=== PATIENT | female | born 1990 | race African-American/Black ===

== ENCOUNTER 2016-08-17 13:27 | Emergency (ER) | payer OTHER ==
[2016-08-17 13:30] VITALS: BMI 39.1
--- NOTE | 2016-08-17 14:42 | PDOC ---
History of Present Illness - General Chief Complaint: Vaginal Bleeding Stated Complaint: IUD MISPLACEMENT/ BLEEDING Time Seen by Provider: 08/17/16 14:20 History Source: Patient Exam Limitations: No Limitations - History of Present Illness Initial Comments: CHIEF COMPLAINT: 26 y/o afebrile female with no significant PMH c/o heavy vaginal bleeding and pelvic pain. HISTORY OF PRESENT ILLNESS: The patient had an IUD inserted [address] Rashid in the clinic. She states the next day she started having vaginal bleeding, which has gotten worse, and 3 days ago she began having pelvic pain. She states she is passing a lot of clots and is going through 7 pads/day. She denies f/c, dizziness, weakness, n/v/d, CP, SOB, back pain, hematuria, dysuria. She has a follow up appointment with Dr. Rashid tomorrow. Vital signs on arrival are within normal limits. REVIEW OF SYSTEMS: GENERAL/CONSTITUTIONAL: No fever/chills. No weakness. No weight change. HEAD, EYES, EARS, NOSE AND THROAT: No change in vision. No ear pain or discharge. No sore throat. CARDIOVASCULAR: No chest pain or shortness of breath. RESPIRATORY: No cough, wheezing, or hemoptysis. GASTROINTESTINAL: +pelvic pain. No vomiting, diarrhea, constipation. GENITOURINARY: No dysuria, frequency, or change in urination. +heavy vaginal bleeding. MUSCULOSKELETAL: No joint or muscle swelling or pain. No neck or back pain. SKIN: No rash or easy bruising. NEUROLOGIC: No headache, vertigo, loss of consciousness, or loss of sensation. PHYSICAL EXAM: GENERAL: The patient is awake, alert, and fully oriented, in no acute distress. She is a morbidly obese, ambulatory female, in NAD or obvious discomfort. HEAD: Normal with no signs of trauma. ENT: Pupils equal, round and reactive to light, extraocular movements intact, sclera anicteric, conjunctiva clear. Neck supple. LUNGS: Clear to auscultation bilaterally. Normal excursion. No respiratory distress or use of accessory muscles. CV: RRR, S1/S2, no MRG. Cap refill < 2 sec. ABDOMEN: Soft, non-distended, non-tender even to deep palpation, no hepatomegaly or splenomegaly, no masses. VAGINAL: Deferred EXTREMITIES: Normal range of motion, no edema. NEUROLOGICAL: Normal speech, normal gait. CN II-XII grossly intact. PSYCH: Normal mood, normal affect. SKIN: Warm, dry, normal turgor, no rashes or lesions noted. Past History - Past Medical History Allergies/Adverse Reactions: Allergies Allergy/AdvReac Type Severity Reaction Status Date / Time No Known Allergies Allergy Verified 08/17/16 13:30 Home Medications: Ambulatory Orders Oxycodone HCl/Acetaminophen [Percocet 5-325 mg Tablet] 1 tab PO Q6H #4 tablet MDD 4 08/17/16 Asthma: No Cancer: No Cardiac Disorders: No Diabetes: No HTN: No Seizures: No Thyroid Disease: No - Reproductive History (#): 1 - Immunization History Immunization Up to Date: Yes - Psycho/Social/Smoking Cessation Hx Anxiety: Yes Suicidal Ideation: No Smoking History: Never smoked Have you smoked in the past 12 months: No Number of Cigarettes Smoked Daily: 0 Cigars Per Day: 0 Hx Alcohol Use: No Drug/Substance Use Hx: No Substance Use Type: None Hx Substance Use Treatment: No *Physical Exam - Vital Signs Last Vital Signs Temp Pulse Resp BP Pulse Ox 97.9 F 75 20 151/79 98 08/17/16 13:28 08/17/16 13:28 08/17/16 13:28 08/17/16 13:28 08/17/16 13:28 ED Treatment Course - LABORATORY CBC & Chemistry Diagram: 08/17/16 14:44 08/17/16 14:44 Medical Decision Making - Medical Decision Making A/P: 26 y/o afebrile female with heavy vaginal bleeding and pelvic pain for the past 1 week s/p IUD insertion. Plan is as follows: 1. Labs 2. UA/culture 3. Transvaginal ultrasound Labs ok Transvaginal Ultrasound IMPRESSION: Intrauterine device is in place. 11mm thickness of the endometrial stripe with heterogeneous echotexture mainly in the lower uterine segment suggestive of blood clots in view of the clinical history of vaginal bleeding. Gave the patient her results. She has an appointment with Dr. Rashid tomorrow and I suggested she keep that appointment for possible IUD removal. Will discharge to home with an rx for a few percocet for pain until tomorrow. instructed her not to drive while taking percocet as it can cause drowsiness. Instructed her to return to the ER with any worsening or concerning symptoms. The patient verbalizes understanding of all instructions, has no further questions and is awaiting discharge. *DC/Admit/Observation/Transfer Diagnosis at time of Disposition: Abnormal vaginal bleeding - Discharge Dispostion Disposition: HOME Condition at time of disposition: Improved - Referrals Referrals: Tracy Flower MD [Primary Care Provider] - Denys Rashid MD [Staff Physician] - (Keep appointment scheduled for tomorrow) - Patient Instructions Printed Discharge Instructions: DI for Vaginal Bleeding Additional Instructions: Discharge Instructions: -Your IUD is in the correct position according to ultrasound -All of your blood work is normal -Take Percocet if needed for pain; may cause drowsiness -Please keep your scheduled appointment with Dr. Rashid for tomorrow for IUD removal. -Return to the ER with any worsening or concerning symptoms. - Post Discharge Activity Work/School Note: Back to Work
[2016-08-17] MEDS ORDERED: morphine CARPU-JECT 4 MG/1 ML DISP.SYRIN IVPUSH ONE (14:55)
[2016-08-17] MEDS ORDERED: morphine CARPU-JECT 4 MG/1 ML DISP.SYRIN ONE (15:19)
[2016-08-17 15:22] LABS: BASOPHIL 0.7 % (0-2.0); EOSINOPHIL 2.1 % (0-4.5); MCH 28.1 pg (25.7-33.7); MEAN CELL VOLUME 85.2 fl (80-96); MEAN PLT VOLUME 8.7 fl (7.5-11.1); NEUTROPHILS 49.5 % (42.8-82.8); PLATELET COUNT 325 K/MM3 (134-434); RDW 14.1 % (11.6-15.6); WHITE BLOOD COUNT 7.3 K/mm3 (4.0-10.0)
[2016-08-17 15:40] LABS: ALBUMIN 3.9 g/dl (3.4-5.0); ANION GAP 9 (8-16); BILIRUBIN,TOTAL 0.3 mg/dL (0.2-1.0); CALCIUM 8.6 mg/dL (8.5-10.1); CO2 26 mmol/L (21-32); CREATININE 0.8 mg/dL (0.55-1.02); GLUCOSE,RANDOM 79 mg/dL (74-106); SGOT/AST 10 U/L (15-37); SGPT/ALT 17 U/L (12-78)
[2016-08-17 15:41] LABS: ALK PHOS 78 U/L (45-117); TOT PROT 7.6 g/dl (6.4-8.2)
--- NOTE | 2016-08-17 15:42 | PDOC ---
[id number] 98 08/17/16 13:28 08/17/16 13:28 08/17/16 13:28 08/17/16 13:28 08/17/16 13:28 - Physical Exam Comments: 08/17/16 15:40 The patient was examined by [LIVIA Vaz] under my direct supervision. I personally evaluated the patient. I concur with the above findings and the plan of care. ED Treatment Course - LABORATORY CBC & Chemistry Diagram: 08/17/16 14:44 08/17/16 14:44 - ADDITIONAL ORDERS Additional order review: Laboratory Results 08/17/16 14:44 Urine HCG, Qual Negative 08/17/16 14:44 RBC 4.48 D MCV 85.2 MCHC 33.0 RDW 14.1 MPV 8.7 D Neutrophils % 49.5 Lymphocytes % 40.8 H D Monocytes % 6.9 Eosinophils % 2.1 Basophils % 0.7 - Medications Given in the ED: ED Medications Discontinued Medications Generic Name Dose Route Start Last Admin Trade Name Tirso PRN Reason Stop Dose Admin Morphine Sulfate 4 mg 08/17/16 14:55 08/17/16 15:27 Morphine Injection - IVPUSH 08/17/16 14:56 4 mg ONCE ONE Administration *DC/Admit/Observation/Transfer Diagnosis at time of Disposition: Abnormal vaginal bleeding - Discharge Dispostion Disposition: HOME Condition at time of disposition: Improved - Prescriptions Prescriptions: Oxycodone HCl/Acetaminophen [Percocet 5-325 mg Tablet] 1 tab PO Q6H #4 tablet MDD 4 - Referrals Referrals: Denys Rashid MD [Staff Physician] - (Keep appointment scheduled for tomorrow) Tracy Flower MD [Primary Care Provider] - - Patient Instructions Printed Discharge Instructions: DI for Vaginal Bleeding Additional Instructions: Discharge Instructions: -Your IUD is in the correct position according to ultrasound -All of your blood work is normal -Take Percocet if needed for pain; may cause drowsiness -Please keep your scheduled appointment with Dr. Rashid for tomorrow for IUD removal. -Return to the ER with any worsening or concerning symptoms. - Post Discharge Activity Work/School Note: Back to Work
[2016-08-17 15:47] VITALS: PULSE 66; TEMP 98.6
[2016-08-17 15:54] LABS: URINE APPEARANCE CLEAR; URINE BILIRUBIN NEGATIVE (NEGATIVE); URINE COLOR LTYELLOW; URINE GLUCOSE (UA) NEGATIVE (NEGATIVE); URINE KETONE NEGATIVE (NEGATIVE); URINE NITRITE NEGATIVE (NEGATIVE); URINE UROBILINOGEN NEGATIVE E.U./dl (0.2-1.0)
[2016-08-17] MEDS ORDERED: SODIUM CHLORIDE 1,000 ML IV STA (16:02)
[2016-08-17 16:20] LABS: URINE BLOOD 3+ (NEGATIVE); URINE LEUK ESTERASE 1+ (NEGATIVE); URINE PROTEIN 1+ (NEGATIVE)
[2016-08-17 16:26] LABS: URINE MUCUS RARE; URINE RBC 523 /hpf (0-3); URINE WBC 7 /hpf (3-5)
[2016-08-17 18:07] VITALS: BP 122/74
== END 2016-08-17 18:07 | disposition home or self-care (01) ==
LOC: JER 13:27
DX: N93.8 Other specified abnormal uterine and vaginal bleeding (principal); Z30.431 Encounter for routine checking of intrauterine contraceptive device
CPT/HCPCS: 36415; 76830-TC; 80053; 81003; 81015; 84703; 85025; 87491; 87591; 99284-25

== ENCOUNTER 2016-10-04 18:55 | Emergency (ER) | payer OTHER ==
[2016-10-04 19:03] VITALS: BP 123/73; PULSE 82; TEMP 98.9; BMI 36.8
--- NOTE | 2016-10-04 19:54 | PDOC ---
History of Present Illness - General Chief Complaint: Pain Stated Complaint: SWOLLEN LT FOOT/ABSCESS BOIL Time Seen by Provider: 10/04/16 19:42 History Source: Patient Exam Limitations: No Limitations - History of Present Illness Initial Comments: 10/04/16 21:26 Chief complaint: Abscess and foot pain pt is a healthy 26-year-old female complaining of right foot pain several days, no injury. No fever. Patient also has an abscess to the right axilla. GENERAL/CONSTITUTIONAL: No fever, weakness. dizziness HEAD, EYES, EARS, NOSE AND THROAT: No change in vision. No ear pain or discharge. No sore throat. CARDIOVASCULAR: No chest pain RESPIRATORY: No shortness of breath or cough GASTROINTESTINAL: No pain, nausea, vomiting, diarrhea or constipation GENITOURINARY: No dysuria MUSCULOSKELETAL: No neck or back pain, + foot pain SKIN: No rash, + abscess NEUROLOGIC: No headache, vertigo, loss of consciousness, or loss of sensation. GENERAL: The patient is awake, alert, and fully oriented, in no acute distress. HEAD: Normal with no signs of trauma. EYES: Pupils equal, round and reactive to light, sclera anicteric, conjunctiva clear. ENT: pharynx: no erythema, no exudate, uvula midline NECK: supple CHEST: clear, nontender, rr. Right axilla with 3 cm x 2 cm raised tender fluctuant erythemic area, no gross surrounding cellulitis ABD: soft, nontender EXTREMITIES: Right foot with mild tenderness to the right arch, no signs of infection, neurovascular intact, rest of extremities normal range of motion, no edema. NEUROLOGICAL: Normal speech, normal gait. SKIN: Warm, Dry Past History - Past Medical History Allergies/Adverse Reactions: Allergies Allergy/AdvReac Type Severity Reaction Status Date / Time No Known Allergies Allergy Verified 10/04/16 19:03 Home Medications: Ambulatory Orders Cephalexin Monohydrate [Keflex -] 1,000 mg PO BID #28 capsule 10/04/16 Oxycodone HCl/Acetaminophen [Percocet 5-325 mg Tablet] 1 tab PO Q4H #12 tablet MDD 6 10/04/16 Sulfamethoxazole/Trimethoprim [Bactrim Ds -] 1 tab PO BID #14 tablet 10/04/16 Asthma: No Cancer: No Cardiac Disorders: No Diabetes: No HTN: No Seizures: No Thyroid Disease: No - Reproductive History (#): 1 Therapeutic (s) & number: No - Immunization History Immunization Up to Date: Yes - Psycho/Social/Smoking Cessation Hx Anxiety: Yes Suicidal Ideation: No Smoking History: Never smoked Have you smoked in the past 12 months: No Number of Cigarettes Smoked Daily: 0 Cigars Per Day: 0 Hx Alcohol Use: No Drug/Substance Use Hx: No Substance Use Type: None Hx Substance Use Treatment: No *Physical Exam - Vital Signs Last Vital Signs Temp Pulse Resp BP Pulse Ox 98.9 F 82 18 123/73 99 10/04/16 18:58 10/04/16 18:58 10/04/16 18:58 10/04/16 18:58 10/04/16 18:58 Procedures - Incision and Drainage I&D Site: Right: Axilla Betadine cleansed: Yes Anesthesia: 2% Lidocaine Blade Size: 11 Iodinated Packin/4 in Complications: none Dressing: Yes Medical Decision Making - Medical Decision Making 10/04/16 21:30 Right foot pain, x-ray is negative, probable tendinitis, patient told wears shoes with good arch support Axilla abscess incised and drained, packed, patient will be placed on antibiotics given the size of it, Bactrim and Keflex *DC/Admit/Observation/Transfer Diagnosis at time of Disposition: Abscess Foot arch pain Qualifiers: Laterality: right Qualified Code(s): M79.671 - Pain in right foot - Discharge Dispostion Disposition: HOME Condition at time of disposition: Stable Admit: No - Prescriptions Prescriptions: Sulfamethoxazole/Trimethoprim [Bactrim Ds -] 1 tab PO BID #14 tablet Cephalexin Monohydrate [Keflex -] 1,000 mg PO BID #28 capsule Oxycodone HCl/Acetaminophen [Percocet 5-325 mg Tablet] 1 tab PO Q4H #12 tablet MDD 6 - Referrals Referrals: Tracy Flower MD [Primary Care Provider] - Yossi Valerio MD [Staff Physician] - - Patient Instructions Printed Discharge Instructions: Boil Additional Instructions: Take the Bactrim and the Keflex twice a day for 7 days You should take acidophilus to help prevent yeast infection or stomach upset Take Motrin 600 mg every 6 hours for pain and if still in pain you can also take Percocet every 4-6 hours for the next 2 days He is to have reevaluated him packing removed, return sooner if fever or feeling sicker Elevate the foot, get good shoes or good running shoes for arch support, if you don't want to get orthotics you can go to a good running store and have them fit your feet Any other problems with your foot, you can follow-up with an orthopedist, one was listed for you
[2016-10-04] MEDS ORDERED: LIDOCAINE HCL 2% (50ML VIAL) SQ ONE (20:38)
[2016-10-04] MEDS ORDERED: LIDOCAINE HCL 2% (20ML MULTI-DOSE VIAL) NR ONE (20:46)
[2016-10-04] MEDS ORDERED: IBUPROFEN 600 MG TABLET (FP) PO ONE ×2 (21:20→21:25)
[2016-10-04] MEDS ORDERED: SULFAMETHOXAZOLE/TRIMETHOPRIM 800MG/160MG D.S. TABLET PO ONE (21:20)
[2016-10-04] MEDS ORDERED: CEPHALEXIN MONOHYDRATE 500 MG CAPSULE (UD) PO ONE (21:20)
[2016-10-04] MEDS ORDERED: SULFAMETHOXAZOLE/TRIMETHOPRIM 800MG/160MG D.S. TABLET ONE (21:25)
[2016-10-04] MEDS ORDERED: CEPHALEXIN MONOHYDRATE 500 MG CAPSULE (UD) ONE (21:26)
== END 2016-10-04 21:49 | disposition home or self-care (01) ==
LOC: JERFT 18:55
PROC: 0X943ZZ Drainage of Right Axilla, Percutaneous Approach (ICD-10-PCS; principal; 2016-10-04)
DX: L02.411 Cutaneous abscess of right axilla (principal); M79.671 Pain in right foot
CPT/HCPCS: 73630-TC-RT; 84703; 99281-25

== ENCOUNTER 2016-10-06 08:17 | Emergency (ER) | payer SELFPAY ==
[2016-10-06 08:28] VITALS: BP 118/69; PULSE 68; TEMP 98.4; BMI 37.5
--- NOTE | 2016-10-06 09:16 | PDOC ---
Suture Removal/Wound Check HPI - History of Present Illness Chief Complaint: Revisit,Wound Recheck Stated Complaint: DRESSING REMOVAL Time Seen by Provider: 10/06/16 08:44 History Source: Yes: Patient Exam Limitations: Yes: No Limitations Treated at: [facility] ED - Previous ED Treatment Type of procedure performed on last visit: Yes: I&D of Abscess Tetanus Immunization: Yes: Up to Date - Onset of Previous Treatment Comment:: 10/06/16 13:56 Patient came to emergency department for evaluation and removal of packing to right axillary abscess. States procedure for incision and drainage was performed 2 days ago, and has continued pain and has been draining since incident. Patient denies fever, has been taking antibiotics as prescribed. Past History - Travel Traveled outside of the country in the last 30 days: No Close contact w/someone who was outside of country & ill: No - Past Medical History Allergies/Adverse Reactions: Allergies No Known Allergies Allergy (Verified 10/06/16 08:23) Home Medications: Ambulatory Orders NK [No Known Home Medication] 10/06/16 General: Yes: no pertinent history Surgical History: Yes: No Surgical History - Immunization History Immunizations Up to Date: Yes - Social History Smoking Status: Never smoked Number of Ciarettes Per Day: 0 Cigars Per Day: 0 Suture Removal/Wound Check PE - Physical Exam Laceration/Wound Check Symptoms: reports: Pain, Discharge Location of Laceration/Wound: right: Arm (AXILLA-PURULENT drainage from packing ) *Review of Systems - Review of Systems Able to Perform ROS?: Yes Constitutional: Yes: Symptoms Reported, See HPI. No: Fever HEENTM: No: Symptoms Reported : No: Symptoms Reported Musculoskeletal: Yes: Symptoms Reported, See HPI Integumentary: Yes: Symptoms Reported, See HPI, Erythema All Other Systems: Reviewed and Negative Medical Decision Making - Medical Decision Making 10/06/16 09:15 10/06/16 13:57 *DC/Admit/Observation/Transfer Diagnosis at time of Disposition: Abscess of arm, right - Discharge Dispostion Disposition: HOME Condition at time of disposition: Stable Admit: No - Referrals Referrals: Tracy Flower MD [Primary Care Provider] - - Patient Instructions Additional Instructions: Rest, keep area elevated. Avoid strenuous activity or exercise until wound is healed Use hot soaks to area to bring more blood to the surface and encourage drainage May change dressings as needed to keep clean - trying to avoid removal of packing for 2 days. If packing needs to be changed, return to emergency department or with your followup physician for wound care and evaluation and repacking as needed If packing needs to be removed, then in 2 days, while in the shower remove dressing and quickly pull the packing taken out. Allow water from shower to wash area thoroughly for 2-3 minutes, and pat dry upon exit of shower and replace dressing. Change his dressing daily until the wound is completely healed. May use Tylenol or Motrin for mild pain relief Use stronger medications as directed and prescribed Continue all medications as prescribed Followup with private physician in 2-3 days for wound check Return to emergency Department for worsening swelling, pain, redness, fevers as needed - Post Discharge Activity Work/School Note: Back to Work
== END 2016-10-06 09:53 | disposition home or self-care (01) ==
LOC: JER 08:17 → JERFT 08:17
DX: L02.411 Cutaneous abscess of right axilla (principal)
CPT/HCPCS: 87070; 87186; 87205; 99281-25

== ENCOUNTER → 2017-08-21 | Day surgery (SDC) | payer OTHER ==
[~2017-08-21] MED LIST: ACETAMINOPHEN INJECTION 100 ML IVPB ONE; DEXAMETHASONE SOD PHOSPHATE 4 MG/1 ML VIAL ONE; HEPARIN NA (PORCINE) 5,000 UNITS/ML 1ML VIAL ONE; LIDOCAINE HCL/PF 2% SDV 5ML VIAL ONE; MIDAZOLAM HCL 2 MG/2 ML SINGLE DOSE VIAL ONE; ONDANSETRON 4 MG/2 ML VIAL ONE; PROPOFOL 20 ML ONE; ROCURONIUM BROMIDE 50 MG/5 ML VIAL ONE; SUCCINYLCHOLINE CHLORIDE 200 MG/10 ML VIAL ONE; ePHEDrine SULFATE 50 MG/1 ML AMPULE ONE; fentaNYL CITRATE 250 MCG/5 ML VIAL ONE
[2017-08-21 07:16] VITALS: BP 119/75; PULSE 73; TEMP 98.8; BMI 39.9
--- NOTE | 2017-08-21 08:03 | PN ---
Progress Note (short form) - Note Progress Note: Patient found to have positive Beta HCG. She is informed that the surgery cannot be done today. She must report immediately to her OBGYN for counseling. She is to be given food immediately and follow up with Dr. Woody in two weeks.
== END | disposition home or self-care (01) ==
LOC: FASU 06:12
PROVIDERS: ATTEND Plastic Surgery
PROC: 0H0V0ZZ Alteration of Bilateral Breast, Open Approach (ICD-10-PCS; principal; 2017-08-21)
DX: Z53.09 Procedure and treatment not carried out because of other contraindication (principal); Z32.01 Encounter for pregnancy test, result positive
CPT/HCPCS: 84703; 87070; J1644

== ENCOUNTER 2017-08-23 09:30 | Emergency (ER) | payer OTHER ==
[2017-08-23 09:44] VITALS: BP 129/77; PULSE 79; TEMP 98.5; BMI 43.8
--- NOTE | 2017-08-23 10:32 | PDOC ---
History of Present Illness - General Chief Complaint: [facility] Stated Complaint: EVALUATION Time Seen by Provider: 08/23/17 10:02 History Source: Patient, Old Records Exam Limitations: No Limitations - History of Present Illness Travel History: No Initial Comments: 08/23/17 10:32 This is a 27-year-old 3 para 1 female who presents to the emergency department for evaluation of . Patient was scheduled for breast reduction done on 08/21 and had the procedure canceled due to positive urine testing. Patient states she has irregular menses which occur approximately 3 times a year and noted some vaginal spotting 07/09/2017. Patient is been having minor lower abdominal pain 08/05 and denies any vaginal bleeding or discharge. PMD: [employer] Boarding Specialist: "Megan" Past History - Past Medical History Allergies/Adverse Reactions: Allergies Allergy/AdvReac Type Severity Reaction Status Date / Time No Known Allergies Allergy Verified 08/23/17 09:40 Home Medications: Ambulatory Orders NK [No Known Home Medication] 10/06/16 Anemia: No Asthma: No Cancer: No Cardiac Disorders: No CVA: No COPD: No CHF: No Dementia: No Diabetes: No GI Disorders: No Disorders: No HTN: No Hypercholesterolemia: No Liver Disease: No Seizures: No Thyroid Disease: No Other medical history: DENIES. - Surgical History Abdominal Surgery: No Appendectomy: No Cardiac Surgery: No Cholecystectomy: No Lung Surgery: No Neurologic Surgery: No Orthopedic Surgery: No - Reproductive History (#): 1 Therapeutic (s) & number: No - Immunization History Immunization Up to Date: Yes - Suicide/Smoking/Psychosocial Hx Smoking History: Never smoked Have you smoked in the past 12 months: No Number of Cigarettes Smoked Daily: 0 Cigars Per Day: 0 Hx Alcohol Use: No Drug/Substance Use Hx: No Substance Use Type: None Hx Substance Use Treatment: No Review of Systems - Review of Systems Able to Perform ROS?: Yes Is the patient limited [place]tarian proficient: No Constitutional: No: Symptoms Reported HEENTM: No: Symptoms Reported Respiratory: No: Symptoms reported Cardiac (ROS): No: Symptoms Reported ABD/GI: Yes: See HPI : No: Symptoms Reported Musculoskeletal: No: Symptoms Reported Integumentary: No: Symptoms Reported Neurological: No: Symptoms reported *Physical Exam - Vital Signs Last Vital Signs Temp Pulse Resp BP Pulse Ox 98.5 F 79 19 129/77 100 08/23/17 09:41 08/23/17 09:41 08/23/17 09:41 08/23/17 09:41 08/23/17 09:41 - Physical Exam General Appearance: Yes: Appropriately Dressed. No: Apparent Distress Respiratory/Chest: positive: Lungs Clear, Normal Breath Sounds. negative: Respiratory Distress, Accessory Muscle Use Cardiovascular: positive: Regular Rhythm, Regular Rate. negative: Murmur Female Pelvic Exam: positive: normal external exam, cervical os closed, normal adnexa, discharge (thin white). negative: CMT Gastrointestinal/Abdominal: positive: Normal Bowel Sounds, Soft. negative: Tender Musculoskeletal: positive: Normal Inspection Medical Decision Making - Medical Decision Making 08/23/17 11:35 A/P: 27-year-old female who is with an LP of 07/09/17 presents with positive urine testing preop. Patient came today for evaluation of . RETARDER OPERATOR exam reveals normal external structures. Thin white discharge noted in vaginal vault. No blood present. No adnexal tenderness Or masses present. Beta hCG 3955. Patient was asymptomatic BV. Given patient has bacterial vaginosis and is currently asymptomatic I will not treat. Patient follow-up with her RETARDER OPERATOR as previously scheduled. *DC/Admit/Observation/Transfer Diagnosis at time of Disposition: BV (bacterial vaginosis) Qualifiers: Weeks of gestation: unspecified Qualified Code(s): Z34.90 - Encounter for supervision of normal , unspecified, unspecified trimester - Discharge Dispostion Disposition: HOME Condition at time of disposition: Stable Admit: No - Referrals Referrals: Tracy Flower MD [Primary Care Provider] - - Patient Instructions Additional Instructions: Eat yogurt with "live cultures" written on the side of the package. Keep well-hydrated. Only take Tylenol for pain or fevers. Do not take Motrin, Aleve, Advil or aspirin. Follow-up with your RETARDER OPERATOR as instructed. Your beta hCG level is 3955. Return to emergency department for any bleeding, worsening pain, vaginal discharge, or any other concerns. Thank you very much for choosing us to provide your emergent healthcare needs. - Post Discharge Activity
== END 2017-08-23 11:45 | disposition home or self-care (01) ==
LOC: JERFT 09:30
DX: O26.899 Other specified pregnancy related conditions, unspecified trimester (principal); Z34.90 Encounter for supervision of normal pregnancy, unspecified, unspecified trimester; Z3A.00 Weeks of gestation of pregnancy not specified
CPT/HCPCS: 36415; 84702; 99281-25

== ENCOUNTER 2018-04-25 12:15 | Inpatient (IN) | payer OTHER ==
[2018-04-25] MEDS ORDERED: CITRIC ACID/SODIUM CITRATE 30 ML UNIT-DOSE CUP PO ONE (12:58)
[2018-04-25] MEDS ORDERED: ELECTROLYTE-148 SOLN 1,000 ML IV SCH (13:00)
[2018-04-25 13:26] VITALS: BMI 48.7
[2018-04-25] MEDS ORDERED: ACETAMINOPHEN 325 MG TABLET (FP) PO PRN (13:50)
[2018-04-25] MEDS ORDERED: morphine SULFATE/Preservative Free 0.5 MG/ML (1cc Syringe) EP ONE (13:50)
[2018-04-25] MEDS ORDERED: ONDANSETRON 4 MG/2 ML VIAL IVPUSH PRN (13:50)
[2018-04-25] MEDS ORDERED: ceFAZolin 2 GRAM PREMIX BAG IVPB ONE (14:00)
[2018-04-25] MEDS ORDERED: ceFAZolin SODIUM 1 GM VIAL ONE (14:13)
[2018-04-25] MEDS ORDERED: morphine SULFATE/Preservative Free 0.5 MG/ML (1cc Syringe) ONE (14:13)
[2018-04-25] MEDS ORDERED: OXYTOCIN 10 UNITS/ML VIAL ONE (15:08)
[2018-04-25] MEDS ORDERED: OXYTOCIN 20 UNITS in 0.9% NS 20 UNIT/1,000 ML INFUS.BAG IV ONE (15:23)
--- NOTE | 2018-04-25 15:36 | OP ---
Operative Note - Note: Operative Date: 04/25/18 Pre-Operative Diagnosis: 39week , History of , desires elective repeat Operation: Repeat Low Transverse Section Findings: VFI, DEEPAK, No nuchal or meconium. Apgars 8/9. Weight pending. Normal tubes and ovaries bilaterally Post-Operative Diagnosis: Same as Pre-op Surgeon: Divine Galindo Oven Heater: Yobany Silva Anesthesia: Spinal Estimated Blood Loss (mls): 500 Drains, Volume Out (mls): 100 (clear urine) Operative Report Dictated: Yes
--- NOTE | 2018-04-25 15:45 | SURG ---
Surgery Garage Helper Note Garage Helper: Yobany Silva PA-C Date of Service: 04/25/18 Diagnosis: 39week , History of , desires elective repeat Procedure: Repeat Low Transverse Section I was present for the entirety of the operative procedure. For further detail, please refer to operative report. Visit type - Case Type Case Type: Scheduled - New patient This patient is new to me today: Yes Date on this admission: 04/25/18
[2018-04-25] MEDS ORDERED: MIDAZOLAM HCL 2 MG/2 ML SINGLE DOSE VIAL ONE (15:46)
--- NOTE | 2018-04-25 16:19 | OP ---
DATE OF OPERATION: 04/25/2018 PREOPERATIVE DIAGNOSES: A 39-week , history of delivery, desires elective repeat. POSTOPERATIVE DIAGNOSES: A 39-week , history of delivery, desires elective repeat. SURGEON: Divine Galindo MD PESTICIDE CHEMIST: LIVIA Ellis ANESTHESIA: Spinal. PROCEDURE: Repeat low-transverse section. IV FLUIDS: Per Anesthesia report. ESTIMATED BLOOD LOSS: 500 mL. URINE OUTPUT: 100 mL of clear urine at the end of the procedure. FINDINGS: Viable female , DEEPAK position. No nuchal, no meconium. Apgars 8 and 9. Weight pending. Normal tubes and ovaries bilaterally. COMPLICATIONS: None. CONDITION: Stable to recovery room. NATURE OF PROCEDURE: Patient was taken to the operating room after signing appropriate consent. Spinal anesthesia was administered. She was laid in supine with a left lateral tilt. Anesthesia was confirmed. Chong catheter was placed in the preoperative area. Abdomen was prepped and draped in the normal sterile fashion. A Pfannenstiel incision was made through her previous incision with the scalpel and carried to the underlying layers. The fascia was nicked in the midline and extended bilaterally with the Gonzalez scissors. Using Lizzeth clamps, the inferior fascia was grasped, tented upwards, and the rectus muscles were dissected off bluntly and with the Gonzalez scissors. Attention was then paid to the superior aspect, which was taken down in a similar fashion. The muscles were in the midline using a scalpel. The peritoneum was then entered bluntly. Bladder flap was created with the Metzenbaum scissors and digitally bladder blade was inserted. An incision with the scalpel was done in the low transverse segment. Clear amniotic fluid was noted. The head was delivered through the incision without difficulty, as was the remaining body. The cord was clamped and cut. was handed off to the pediatric staff. The placenta was delivered manually. The uterus was cleared of clot and debris. The uterus was closed in a single layer with a 0 Vicryl in an imbricating fashion. The uterus was noted to be hemostatic. Both adnexa were visualized and appeared normal. Attention was then paid again to the hysterotomy, which appeared hemostatic. Bladder blade was removed. The muscles were reapproximated with a 2-0 chromic. The fascia was reapproximated with a 0 Vicryl. The subcutaneous layer was reapproximated with a 2-0 Vicryl. The skin was closed with a 4-0 Monocryl. Bandages and dressings were placed. The patient tolerated the procedure well, was taken to the recovery room in stable condition. All sponge , lap and needle counts were correct.She did receive 2 g of Ancef at the start of the procedure. MD RAYO HERRERA/[id number] MTDD
[2018-04-25] MEDS ORDERED: METHYLERGONOVINE MALEATE 0.2 MG/1 ML AMP IM PRN (18:03)
[2018-04-25] MEDS ORDERED: IBUPROFEN 800 MG/8 ML IJ IVPB PRN (18:03)
[2018-04-25] MEDS ORDERED: OXYTOCIN 20 UNITS in 0.9% NS 20 UNIT/1,000 ML INFUS.BAG IV SCH (18:15)
[2018-04-25] MEDS ORDERED: FLU VACCINE QUAD 60 MCG/0.5 ML (MDV 18-19) IM ONE (18:17)
[2018-04-26] MEDS: IBUPROFEN 600 MG TABLET (FP) PO PRN ×3 (07:55→20:19)
[2018-04-26] MEDS: oxyCODONE HCL 5 MG TABLET PO PRN (07:56)
[2018-04-26] MEDS: SIMETHICONE 80 MG TAB.CHEW (FP) PO PRN (07:57)
[2018-04-26 08:12] LABS: BASO % 0.4 % (0-2.0); EOS % 1.1 % (0-4.5); HEMATOCRIT 33.8 % (32.4-45.2); HEMOGLOBIN 11.1 GM/dL (10.7-15.3); LYMPH % 22.2 % (8-40); MCH 27.7 pg (25.7-33.7); MCHC 32.8 g/dl (32.0-36.0); MEAN CELL VOLUME 84.5 fl (80-96); MEAN PLT VOLUME 7.3 fl (7.5-11.1); MONO % 10.4 % (3.8-10.2); NEUT % 65.9 % (42.8-82.8); PLATELET COUNT 260 K/MM3 (134-434); RDW 15.7 % (11.6-15.6); WHITE BLOOD COUNT 5.4 K/mm3 (4.0-10.0)
--- NOTE | 2018-04-26 10:41 | PN ---
Post Progress Note Type of Delivery: Repeat C/S Vital Signs: Vital Signs Temperature 98.0 F 04/26/18 08:28 Pulse Rate 88 04/26/18 08:28 Respiratory Rate 20 04/26/18 09:00 Blood Pressure 127/72 04/26/18 08:28 O2 Sat by Pulse Oximetry (%) 97 04/26/18 09:40 Uterus: Yes: Fundus @ umbilicus Incision: Yes: Dressing dry and intact Abdomen/GI: Yes: Abdomen soft Lochia: Yes: Rubra Lochia, amount: Small Extremities: Yes: Calves non-tender Activity: Ambulating - Labs Labs: CBC WBC 5.4 K/mm3 (4.0-10.0) 04/26/18 07:05 RBC 4.00 M/mm3 (3.60-5.2) 04/26/18 07:05 Hgb 11.1 GM/dL (10.7-15.3) 04/26/18 07:05 Hct 33.8 % (32.4-45.2) 04/26/18 07:05 MCV 84.5 fl (80-96) 04/26/18 07:05 MCH 27.7 pg (25.7-33.7) 04/26/18 07:05 MCHC 32.8 g/dl (32.0-36.0) 04/26/18 07:05 RDW 15.7 % (11.6-15.6) H D 04/26/18 07:05 Plt Count 260 K/MM3 (134-434) D 04/26/18 07:05 MPV 7.3 fl (7.5-11.1) L 04/26/18 07:05 Absolute Neuts (auto) 3.6 K/mm3 (1.5-8.0) 04/26/18 07:05 Neutrophils % 65.9 % (42.8-82.8) 04/26/18 07:05 Lymphocytes % 22.2 % (8-40) D 04/26/18 07:05 Monocytes % 10.4 % (3.8-10.2) H 04/26/18 07:05 Eosinophils % 1.1 % (0-4.5) 04/26/18 07:05 Basophils % 0.4 % (0-2.0) 04/26/18 07:05 Nucleated RBC % 0 % (0-0) 04/26/18 07:05 Assessment/Plan 28yo s/p RLTCS, POD#1 Routine PP care OOB, ambulate Labs reviewed, wnl Anticipate d/c to home by POD#4 Divine Galindo MD
[2018-04-26] MEDS: ACETAMINOPHEN 325 MG TABLET (FP) PO PRN ×2 (14:46→20:20)
--- NOTE | 2018-04-26 15:30 | PN ---
Progress Note (short form) - Note Progress Note: Anesthesia POD#1 S/P under Spinal anesthesia and DM VSS,no N/V,a lot of icthing calming down now. Legs are strong. Rut Ortega MD.
[2018-04-26] MEDS: SENNOSIDES/DOCUSATE COMBO (SENNA PLUS) TABLET (UD) PO PRN (20:18)
[2018-04-26] MEDS: diphenhydrAMINE HCL 25 MG CAPSULE (FP) PO PRN (21:35)
[2018-04-27] MEDS: SIMETHICONE 80 MG TAB.CHEW (FP) PO PRN ×4 (05:03→20:27)
[2018-04-27] MEDS: IBUPROFEN 600 MG TABLET (FP) PO PRN ×4 (05:04→20:28)
[2018-04-27] MEDS: oxyCODONE HCL 5 MG TABLET PO PRN (05:04)
--- NOTE | 2018-04-27 07:37 | PN ---
Progress Note (short form) - Note Progress Note: pod 2 , no excess vaginal bleeding, voids ok CBC, BMP 04/26/18 07:05 Last Vital Signs Temp Pulse Resp BP Pulse Ox 98.3 F 88 18 105/63 99 04/26/18 21:32 04/26/18 21:32 04/26/18 21:32 04/26/18 21:32 04/26/18 21:32 abdomen soft, no distension, no cva uterus firm incision dry, clean no calf tenderness plan ambulate advance diet cbc in am
[2018-04-27] MEDS: ACETAMINOPHEN 325 MG TABLET (FP) PO PRN ×3 (09:11→20:27)
--- NOTE | 2018-04-27 17:56 | PATH ---
Surgical Pathology Report Patient Name: DAPHNEY CH Med. Rec. 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 Electronically Signed Sara Maria M.D. Gross Description The specimen is received fresh labeled placenta and is a 799 gram, 21 x 18 x 2.2 cm. placenta with attached membranes and umbilical cord. The attached membranes are bello, translucent and insert marginally. The umbilical cord measures 50 cm. in length and averages 1.5 cm. in diameter. The cord inserts eccentrically, 5 cm. to the nearest margin. No true knots or strictures are identified. Cut surface of the umbilical cord reveals 3 vessels. The surface is wyman-blue with minimal fibrin deposition and appropriate caliber vessels. The maternal surface is red-brown with focal defects. Sectioning reveals red-brown, spongy parenchyma. No lesions are identified. Senior Investment Analyst sections are submitted in three cassettes as follows: 1- membrane rolls and umbilical cord; 2-3- full thickness sections of placenta. MLSZ/04/26/2018 sanml/04/26/2018
[2018-04-27] MEDS: diphenhydrAMINE HCL 25 MG CAPSULE (FP) PO PRN (21:09)
[2018-04-27] MEDS: SENNOSIDES/DOCUSATE COMBO (SENNA PLUS) TABLET (UD) PO PRN (21:09)
[2018-04-28] MEDS: SIMETHICONE 80 MG TAB.CHEW (FP) PO PRN ×4 (04:20→19:15)
[2018-04-28] MEDS: IBUPROFEN 600 MG TABLET (FP) PO PRN ×4 (04:20→19:15)
[2018-04-28] MEDS: oxyCODONE HCL 5 MG TABLET PO PRN ×3 (04:23→22:14)
[2018-04-28 08:15] LABS: BASO % 0.5 % (0-2.0); EOS % 3.3 % (0-4.5); HEMATOCRIT 31.3 % (32.4-45.2); HEMOGLOBIN 10.9 GM/dL (10.7-15.3); LYMPH % 36.5 % (8-40); MCH 29.7 pg (25.7-33.7); MEAN CELL VOLUME 84.7 fl (80-96); MEAN PLT VOLUME 7.8 fl (7.5-11.1); MONO % 9.6 % (3.8-10.2); NEUT % 50.1 % (42.8-82.8); PLATELET COUNT 304 K/MM3 (134-434); RBC 3.69 M/mm3 (3.60-5.2); RDW 15.6 % (11.6-15.6); WHITE BLOOD COUNT 4.4 K/mm3 (4.0-10.0)
[2018-04-28] MEDS: ACETAMINOPHEN 325 MG TABLET (FP) PO PRN ×3 (08:22→19:16)
--- NOTE | 2018-04-28 11:48 | PN ---
Post Progress Note Type of Delivery: Repeat C/S Vital Signs: Vital Signs Temperature 98 F 04/28/18 08:56 Pulse Rate 75 04/28/18 08:56 Respiratory Rate 20 04/28/18 08:56 Blood Pressure 115/66 04/28/18 08:56 O2 Sat by Pulse Oximetry (%) 99 04/26/18 21:32 Breast Exam: Yes: Soft Uterus: Yes: Fundus below umbilicus Abdomen/GI: Yes: Abdomen soft Lochia: Yes: Rubra Lochia, amount: Small Extremities: Yes: Calves non-tender - Labs Labs: CBC WBC 4.4 K/mm3 (4.0-10.0) 04/28/18 07:00 RBC 3.69 M/mm3 (3.60-5.2) 04/28/18 07:00 Hgb 10.9 GM/dL (10.7-15.3) 04/28/18 07:00 Hct 31.3 % (32.4-45.2) L 04/28/18 07:00 MCV 84.7 fl (80-96) 04/28/18 07:00 MCH 29.7 pg (25.7-33.7) 04/28/18 07:00 MCHC 35.0 g/dl (32.0-36.0) 04/28/18 07:00 RDW 15.6 % (11.6-15.6) 04/28/18 07:00 Plt Count 304 K/MM3 (134-434) 04/28/18 07:00 MPV 7.8 fl (7.5-11.1) 04/28/18 07:00 Absolute Neuts (auto) 2.2 K/mm3 (1.5-8.0) 04/28/18 07:00 Neutrophils % 50.1 % (42.8-82.8) D 04/28/18 07:00 Lymphocytes % 36.5 % (8-40) D 04/28/18 07:00 Monocytes % 9.6 % (3.8-10.2) 04/28/18 07:00 Eosinophils % 3.3 % (0-4.5) D 04/28/18 07:00 Basophils % 0.5 % (0-2.0) 04/28/18 07:00 Nucleated RBC % 0 % (0-0) 04/28/18 07:00 Assessment/Plan 28yo s/p RLTCS, POD#3 Routine PP care OOB, ambulate Labs reviewed, wnl Anticipate d/c to home by POD#4 Divine Galindo MD
[2018-04-29] MEDS: IBUPROFEN 600 MG TABLET (FP) PO PRN (05:20)
[2018-04-29] MEDS: SIMETHICONE 80 MG TAB.CHEW (FP) PO PRN (05:20)
[2018-04-29] MEDS: ACETAMINOPHEN 325 MG TABLET (FP) PO PRN (05:21)
[2018-04-29 09:07] VITALS: BP 122/74; PULSE 78; TEMP 99
== END 2018-04-29 10:40 | disposition home or self-care (01) | DRG 540 ==
LOC: JLDR 12:15 → J3W 17:20
PROVIDERS: ADMIT Obstetrics & Gynecology; ATTEND Obstetrics & Gynecology
PROC: 10D00Z1 Extraction of Products of Conception, Low, Open Approach (ICD-10-PCS; principal; 2018-04-25)
DX: O34.211 Maternal care for low transverse scar from previous cesarean delivery (principal); Z3A.39 39 weeks gestation of pregnancy; Z37.0 Single live birth
CPT/HCPCS: 36415; 85025; 86593; 88307-TC; 94010

== ENCOUNTER 2018-09-28 09:16 | Day surgery (SDC) | payer OTHER ==
[2018-09-26 14:23] VITALS: BMI 36.3
--- NOTE | 2018-09-28 09:17 | HP ---
History & Physical Update - History History: No Change - Physical Physical: No Change - Assessment Assessment: No Change - Plan Plan: No Change
[2018-09-28] MEDS ORDERED: BUPIVACAINE HCL/PF 0.5% (5MG/ML) 10 ML VIAL ONE ×2 (10:41→11:19)
[2018-09-28] MEDS ORDERED: MIDAZOLAM HCL 2 MG/2 ML SINGLE DOSE VIAL ONE ×3 (11:21)
[2018-09-28] MEDS ORDERED: ROCURONIUM BROMIDE 50 MG/5 ML VIAL ONE (11:21)
[2018-09-28] MEDS ORDERED: fentaNYL CITRATE 250 MCG/5 ML VIAL ONE (11:21)
--- NOTE | 2018-09-28 11:40 | HP ---
Admitting History and Physical - Admission Chief Complaint: ventral hernia History of Present Illness: 28 y.o. female with supraumbilical bulge noted during and persisted post- associated with pain on exertion History Source: Patient Limitations to Obtaining History: No Limitations - Past Medical History ...LMP: 09/13/18 Heme/Onc: Yes: Anemia - Smoking History Smoking history: Never smoked Have you smoked in the past 12 months: No Aproximately how many cigarettes per day: 0 - Alcohol/Substance Use Hx Alcohol Use: No History of Substance Use: reports: None Home Medications - Allergies Allergies/Adverse Reactions: Allergies Allergy/AdvReac Type Severity Reaction Status Date / Time No Known Allergies Allergy Verified 09/28/18 09:43 - Home Medications Home Medications: Ambulatory Orders Vit/Iron Fum/Folic AC [ Tablet] 1 each PO DAILY 12/04/17 Review of Systems - Review of Systems Constitutional: reports: No Symptoms Eyes: reports: No Symptoms Neck: reports: No Symptoms Cardiovascular: reports: No Symptoms Respiratory: reports: No Symptoms Gastrointestinal: reports: Abdominal Pain Physical Examination Vital Signs: Vital Signs Temperature 98.2 F 09/28/18 09:42 Pulse Rate 66 09/28/18 09:42 Respiratory Rate 18 09/28/18 09:42 Blood Pressure 114/68 09/28/18 09:42 O2 Sat by Pulse Oximetry (%) 98 09/28/18 09:42 Constitutional: Yes: Well Nourished Eyes: Yes: WNL HENT: Yes: Normocephalic Neck: Yes: Supple Cardiovascular: Yes: Regular Rate and Rhythm Respiratory: Yes: CTA Bilaterally Gastrointestinal: Yes: Abdomen, Obese, Hernia (5 cm non-reducible supraumbilical bulge with mild tenderness) Problem List - Problems (1) Ventral hernia with obstruction Assessment/Plan: Robotic ventral hernia repair with mesh Code(s): K43.6 - OTHER AND UNSP VENTRAL HERNIA WITH OBSTRUCTION, W/O GANGRENE
[2018-09-28] MEDS ORDERED: ceFAZolin SODIUM 1 GM VIAL IVPB ONE (12:03)
[2018-09-28] MEDS ORDERED: ONDANSETRON 4 MG/2 ML VIAL IVPUSH PRN (12:29)
[2018-09-28] MEDS ORDERED: oxyCODONE HCL 5 MG TABLET PO PRN (12:29)
[2018-09-28] MEDS ORDERED: MORPHINE SULFATE 2 MG/ML VIAL IVPUSH PRN (12:30)
[2018-09-28] MEDS ORDERED: ACETAMINOPHEN 325 MG TABLET (FP) PO SCH (12:30)
[2018-09-28] MEDS ORDERED: LACTATED RINGERS SOLUTION 1,000 ML IV SCH (12:30)
[2018-09-28] MEDS ORDERED: KETOROLAC TROMETHAMINE 15 MG/ML VIAL IVPUSH PRN (12:30)
[2018-09-28] MEDS ORDERED: BUPIVACAINE HCL/PF 0.5% (5MG/ML) 10 ML VIAL IJ ONE ×2 (14:05)
--- NOTE | 2018-09-28 14:58 | OP ---
Operative Note - Note: Operative Date: 09/28/18 Pre-Operative Diagnosis: Ventral Hernia Operation: Robotic assisted Laparoscopic Ventral Hernia Repair with Mesh Findings: as dictated Implants: as dictated Post-Operative Diagnosis: Same as Pre-op Surgeon: Beni Hope Sociology Faculty Member: Robert Hensley Anesthesiologist/AUTOMATION TENDER: Patricia Meehan Anesthesia: General, Local (26cc .5% Marcaine) Estimated Blood Loss (mls): 10 (ml) Fluid Volume Replaced (mls): 800 (ml LR) Operative Report Dictated: Yes
--- NOTE | 2018-09-28 15:00 | SURG ---
Surgery Fur Repair Inspector Note Fur Repair Inspector: Robert Hensley PA-C (Suzy) Date of Service: 09/28/18 Diagnosis: Ventral Hernia Procedure: Robotic assisted Laparoscopic Ventral Hernia Repair with Mesh I was present for the entirety of the operative procedure. For further detail, please refer to operative report. Visit type - Case Type Case Type: Scheduled - Emergency Emergency Visit: No - New patient This patient is new to me today: Yes Date on this admission: 09/28/18 - Critical Care Critical Care patient: No
[2018-09-28 16:31] VITALS: TEMP 98
[2018-09-28] MEDS ORDERED: ACETAMINOPHEN 325 MG TABLET (FP) ONE (17:41)
[2018-09-28 17:47] VITALS: BP 114/63; PULSE 65
--- NOTE | 2018-09-29 07:06 | OP ---
DATE OF OPERATION: 09/28/2018 PROCEDURE: Robotic-assisted laparoscopic ventral hernia repair with mesh. PREOPERATIVE DIAGNOSIS: Umbilical and epigastric hernia with obstruction. POSTOPERATIVE DIAGNOSIS: Umbilical and epigastric hernia with obstruction. SURGEON: Beni Hope MD BUILD AND RELEASE MANAGER: LIVIA Hensley ANESTHESIA: General endotracheal. REASON FOR PROCEDURE: This is a 28-year-old female who presents with a supraumbilical bulge during , which persisted associated with pain on exertion. On physical exam, the patient has a 5-cm nonreducible bulge of the supraumbilical area with mild tenderness on attempting to reduce the incarcerated hernia, so the patient was advised initially to lose weight. However, the pain intensity was increasing, prompting to do the hernia repair at an earlier time. Consent was obtained after discussing the risks, benefits, and alternatives of the procedure. PROCEDURE IN DETAIL: The patient was brought to the operating room and placed in supine position. General endotracheal anesthesia was administered. The left arm was tucked to the side. The abdomen was prepped and draped in the usual sterile fashion. Using 0.5% Marcaine, local anesthesia was administered to the proposed incision site. The peritoneal cavity was entered using the Veress needle technique via an 8-mm subcostal incision 15 cm from the hernia. Pneumoperitoneum was established. This was followed by insertion of the 8-mm port. The 3D laparoscope was inserted, and the peritoneal cavity was carefully inspected and was noted to be free of any inadvertent injury. Two hernias were noted, one at the epigastric region about 2 cm up above the umbilicus, which was about 5 cm in diameter, and an umbilical hernia, which was about 3 cm in diameter. Two 8-mm ports were inserted at the left flank 8 mm away from each other. Under direct vision, the target organ was set and the robotic arms were docked. A fenestrated bipolar grasper was inserted at the lower most port, and Endowrist Gemma connected to monopolar cautery was inserted at the left subcostal port. The camera was placed in between the 2 ports. The undersigned then scrubbed out and commenced the console part of the procedure. The peritoneum covering the area of the hernia was scored. Using the Endo Gemma on the left side and carried toward the hernia sac reducing the sac and the sac containing preperitoneal fat. After the hernia was completely reduced, the defects, which were near each other, were closed with continuous V-Lock No. 1 and absorbable suture. After the primary closure was done, the 10-cm x 15-cm Symbotex mesh was deployed with its antiadhesion barrier facing the peritoneal cavity. On insertion of one of the nonabsorbable sutures, the needle snapped, and it migrated somewhere in the peritoneal cavity. Due to the difficulty in looking for the needle, the current procedure was converted to straight laparoscopy. The subcostal port was changed to an 11-mm port, and a 10-mm 30-degree scope was inserted. The search for the needle was done and was noted to be found on the right pelvic gutter. This was then retrieved. The rest of the sutures were also retrieved. The mesh was then tacked to the posterior abdominal wall using the AbsorbaTack tacking device. After the deployment was deemed satisfactory, the peritoneal cavity was again carefully inspected and was noted to be free of active bleeding. The pneumoperitoneum was evacuated, and the ports were removed. The wounds were closed with subcuticular Biosyn 4-0 sutures reinforced with Dermabond. The patient was successfully extubated and transferred to the post anesthesia care unit in satisfactory condition. Estimated blood loss was about 10 mL. Wound class clean. The patient received a gram of Ancef prior to the start of the procedure. Liz [id number] MTDD
== END 2018-09-28 18:07 | disposition home or self-care (01) ==
LOC: JASU-SURG 09:16
PROVIDERS: ATTEND Surgery
PROC: 8E0W4CZ Robotic Assisted Procedure of Trunk Region, Percutaneous Endoscopic Approach (ICD-10-PCS; 2018-09-28)
PROC: 0WUF4JZ Supplement Abdominal Wall with Synthetic Substitute, Percutaneous Endoscopic Approach (ICD-10-PCS; principal; 2018-09-28 12:10)
DX: K42.0 Umbilical hernia with obstruction, without gangrene (principal); K43.6 Other and unspecified ventral hernia with obstruction, without gangrene
CPT/HCPCS: 49653; S2900; 84703; 94760

== ENCOUNTER 2018-10-22 08:50 | Emergency (ER) | payer OTHER ==
[2018-10-22 09:04] VITALS: BP 134/81; PULSE 88; TEMP 100.1; BMI 32.3
[2018-10-22] MEDS ORDERED: PENICILLIN G BENZATHINE 1,200,000 UNIT/2 ML PFS IM ONE (09:20)
--- NOTE | 2018-10-22 09:24 | PDOC ---
History of Present Illness - General Chief Complaint: Sore Throat Stated Complaint: STREP THROAT Time Seen by Provider: 10/22/18 09:12 History Source: Patient Exam Limitations: No Limitations - History of Present Illness Initial Comments: 10/22/18 09:22 Onset of pain, swelling, sore throat since last night. States felt well yesterday morning. 4-year-old was ill with strep throat last week Timing/Duration: unsure Severity: moderate Associated Symptoms: reports: fever/chills, headaches, malaise Past History - Travel Traveled outside of the country in the last 30 days: No Close contact w/someone who was outside of country & ill: No - Past Medical History Allergies/Adverse Reactions: Allergies Allergy/AdvReac Type Severity Reaction Status Date / Time No Known Allergies Allergy Verified 10/22/18 09:19 Home Medications: Ambulatory Orders NK [No Known Home Medication] 10/22/18 Anemia: No Asthma: No Cancer: No Cardiac Disorders: No CVA: No COPD: No CHF: No Dementia: No Diabetes: No GI Disorders: No Disorders: No HTN: No Hypercholesterolemia: No Liver Disease: No Seizures: No Thyroid Disease: No - Surgical History Abdominal Surgery: No Appendectomy: No Cardiac Surgery: No Cholecystectomy: No Lung Surgery: No Neurologic Surgery: No Orthopedic Surgery: No - Reproductive History (#): 1 Therapeutic (s) & number: No - Immunization History Immunization Up to Date: Yes - Suicide/Smoking/Psychosocial Hx Smoking History: Never smoked Have you smoked in the past 12 months: No Number of Cigarettes Smoked Daily: 0 Cigars Per Day: 0 Hx Alcohol Use: No Drug/Substance Use Hx: No Substance Use Type: None Hx Substance Use Treatment: No Review of Systems - Review of Systems Able to Perform ROS?: Yes Is the patient limited Turkmen proficient: Yes Constitutional: Yes: Symptoms Reported, See HPI. No: Fever HEENTM: Yes: Symptoms Reported, See HPI, Throat Pain, Throat Swelling Respiratory: Yes: See HPI. No: Symptoms reported, Cough ABD/GI: Yes: See HPI. No: Symptoms Reported, Nausea, Vomiting All Other Systems: Reviewed and Negative *Physical Exam - Vital Signs Last Vital Signs Temp Pulse Resp BP Pulse Ox 100.1 F H 88 16 134/81 100 10/22/18 09:03 10/22/18 09:03 10/22/18 09:03 10/22/18 09:03 10/22/18 09:03 - Physical Exam General Appearance: Yes: Nourished, Appropriately Dressed, Apparent Distress HEENT: positive: Normal ENT Inspection, TMs Normal, Tonsillar Exudate (tonsils enlarged however airway is patent. Has fetid breath, consistent with streptococcal infection), Tonsillar Erythema, Nasal Congestion, Rhinorrhea Neck: positive: Tender, Supple, Lymphadenopathy (R), Lymphadenopathy (L) Respiratory/Chest: positive: Lungs Clear, Normal Breath Sounds Integumentary: positive: Dry, Warm, Pale Neurologic: positive: drainage engineer II-XII NML intact, Fully Oriented, Alert, Normal Mood/ Affect, Normal Response Medical Decision Making - Medical Decision Making 10/22/18 14:25 Treated with Bicillin 1.2 million units IM due to all clinical evidence of streptococcal infection of pharynx. No reaction after 30 minutes, *DC/Admit/Observation/Transfer Diagnosis at time of Disposition: Pharyngitis Qualifiers: Pharyngitis/tonsillitis etiology: unspecified etiology Qualified Code(s): J02.9 - Acute pharyngitis, unspecified - Discharge Dispostion Disposition: HOME Condition at time of disposition: Stable Decision to Admit order: No - Referrals Referrals: Tracy Flower MD [Primary Care Provider] - - Patient Instructions Printed Discharge Instructions: DI for Pharyngitis/Tonsillopharyngitis -- Adult Additional Instructions: Rest, drink lots of fluids: Teas, water, soups Eat cold things: Ice cream, ice pops, ice chips Saltwater gargles Steamy showers/seem to face break up mucus Avoid contact with others until fevers and pain resolved Lots of handwashing and good hygiene, this is contagious You have been treated with Bicillin LA 1.2 million units injection which is a one-time treatment for strep pharyngitis. You will not need to take any further antibiotics. Tylenol or Motrin for fever and pain Followup with private physician in one to 2 days as needed if not improving Return to emergency department for worsened symptoms, fevers, dehydration - Post Discharge Activity Forms/Work/School Notes: Back to Work
[2018-10-22] MEDS ORDERED: PENICILLIN G BENZATHINE 2,400,000 UNIT/4 ML PFS ONE (09:27)
== END 2018-10-22 09:58 | disposition home or self-care (01) ==
LOC: JERFT 08:50
DX: J02.0 Streptococcal pharyngitis (principal); B95.5 Unspecified streptococcus as the cause of diseases classified elsewhere
CPT/HCPCS: 96372; 99281-25

== ENCOUNTER → 2019-08-22 | Day surgery (SDC) | payer OTHER ==
[2019-08-21 16:45] VITALS: BMI 40.3
[~2019-08-22] MED LIST changes: -ACETAMINOPHEN INJECTION 100 ML IVPB ONE; +ELECTROLYTE-148 SOLN 1,000 ML IV SCH; +EPHEDRINE SULFATE/0.9% NACL/PF 50 MG/10 ML SYRINGE NR ONE; -HEPARIN NA (PORCINE) 5,000 UNITS/ML 1ML VIAL ONE; +IBUPROFEN 600 MG TABLET (FP) PO PRN; +IBUPROFEN 800 MG/8 ML IJ IVPB PRN; +LACTATED RINGERS SOLUTION 1,000 ML IV SCH; +ONDANSETRON 4 MG/2 ML VIAL IVPUSH PRN; -ONDANSETRON 4 MG/2 ML VIAL ONE; -ROCURONIUM BROMIDE 50 MG/5 ML VIAL ONE; +SUCCINYLCHOLINE CHLORIDE 200 MG/10 ML SYRINGE ONE; -SUCCINYLCHOLINE CHLORIDE 200 MG/10 ML VIAL ONE; -ePHEDrine SULFATE 50 MG/1 ML AMPULE ONE; -fentaNYL CITRATE 250 MCG/5 ML VIAL ONE; +oxyCODONE HCL 5 MG TABLET PO PRN
[2019-08-22 12:33] LABS: BASO % 0.6 % (0-2.0); EOS % 3.2 % (0-4.5); HEMATOCRIT 38.3 % (32.4-45.2); HEMOGLOBIN 12.7 GM/dL (10.7-15.3); LYMPH % 48.7 % (8-40); MCH 28.2 pg (25.7-33.7); MCHC 33.2 g/dl (32.0-36.0); MEAN PLT VOLUME 8.2 fl (7.5-11.1); MONO % 8.4 % (3.8-10.2); NEUT % 39.1 % (42.8-82.8); PLATELET COUNT 330 K/MM3 (134-434)
[2019-08-22 12:50] LABS: INR 1.04 (0.83-1.09); PROTHROMBIN TIME (PATIENT) 12.3 SEC (9.7-13.0)
[2019-08-22 13:35] LABS: ALBUMIN 3.8 g/dl (3.4-5.0); ALK PHOS 77 U/L (45-117); ANION GAP 4 MMOL/L (8-16); BILIRUBIN,TOTAL 0.4 mg/dL (0.2-1); BLOOD UREA NITROGEN 12.6 mg/dL (7-18); CALCIUM 8.9 mg/dL (8.5-10.1); CHLORIDE 106 mmol/L (98-107); CO2 27 mmol/L (21-32); CREATININE 0.8 mg/dL (0.55-1.3); GLUCOSE,RANDOM 75 mg/dL (74-106); POTASSIUM 4.2 mmol/L (3.5-5.1); SGOT/AST 10 U/L (15-37); SGPT/ALT 22 U/L (13-61); SODIUM 138 mmol/L (136-145); TOT PROT 7.6 g/dl (6.4-8.2)
--- NOTE | 2019-08-22 14:06 | EKG ---
Test Reason : Blood Pressure : / mmHG Vent. Rate : 072 BPM Atrial Rate : 072 BPM P-R Int : 158 ms QRS Dur : 102 ms QT Int : 432 ms P-R-T Axes : 046 068 062 degrees QTc Int : 473 ms NORMAL SINUS RHYTHM NORMAL ECG WHEN COMPARED WITH ECG OF 16-AUG-2017 11:25, NONSPECIFIC T WAVE ABNORMALITY NOW EVIDENT IN ANTERIOR LEADS Confirmed by DONNA DIAZ MD ([id number]) on 08/22/2019 2:05:40 PM Referred By: Confirmed By:DONNA DIAZ MD
--- NOTE | 2019-08-22 14:12 | HP ---
Past Medical History - Primary Care Physician PCP:: Can Whelan - Admission Chief Complaint: embeded iud History of Present Illness: 29 yo f with hx of embeded iud , was tried to take it out as outpatient, unable to do it , adnitted for hysteroscopic removal , risks associated with procedure has explained to patient History Source: Patient Limitations to Obtaining History: No Limitations - Past Medical History Heme/Onc: Yes: Anemia - Past Surgical History Hx Myomectomy: No Hx Transabdominal Cerclage: No - Smoking History Smoking history: Never smoked Have you smoked in the past 12 months: No Aproximately how many cigarettes per day: 0 - Alcohol/Substance Use Hx Alcohol Use: No History of Substance Use: reports: None - Social History History of Recent Travel: No Home Medications - Allergies Allergies/Adverse Reactions: Allergies Allergy/AdvReac Type Severity Reaction Status Date / Time No Known Allergies Allergy Verified 08/22/19 12:31 - Home Medications Home Medications: Ambulatory Orders NK [No Known Home Medication] 08/23/19 Review of Systems - Review of Systems Constitutional: reports: No Symptoms Eyes: reports: No Symptoms HENT: reports: No Symptoms Neck: reports: No Symptoms Cardiovascular: reports: No Symptoms Respiratory: reports: No Symptoms Gastrointestinal: reports: No Symptoms Genitourinary: reports: No Symptoms Breasts: reports: No Symptoms Reported Musculoskeletal: reports: No Symptoms, Other Integumentary: reports: No Symptoms Neurological: reports: No Symptoms Endocrine: reports: No Symptoms Hematology/Lymphatic: reports: No Symptoms Physical Exam-NEWSPAPER VENDOR Vital Signs: Vital Signs Temperature 98.3 F 08/22/19 12:28 Pulse Rate 67 08/22/19 12:28 Respiratory Rate 08/22/19 12:28 Blood Pressure 129/73 08/22/19 12:28 O2 Sat by Pulse Oximetry (%) 98 08/22/19 12:27 Constitutional: Yes: Obese HENT: Yes: WNL Gastrointestinal: Yes: WNL Renal/: Yes: WNL Pelvis: Yes: WNL External Genitalia: Yes: Normal Vaginal Exam: Yes: Normal Cervix: Yes: Normal Uterus: Yes: Normal Adnexa: Not Palpable: Left, Right Edema: No Labs: CBC, BMP 08/22/19 11:45 08/22/19 11:45 Problem List - Problem (1) IUD strings lost Code(s): T83.32XA - DISPLACEMENT OF INTRAUTERINE CONTRACEPTIVE DEVICE, INIT Qualifiers: Encounter type: initial encounter Qualified Code(s): T83.32XA - Displacement of intrauterine contraceptive device, initial encounter Assessment/Plan hysteroscopic remval , D&C
[2019-08-22 16:00] VITALS: BP 126/88; PULSE 69; TEMP 97.7
--- NOTE | 2019-08-22 16:24 | OP ---
Operative Note - Note: Operative Date: 08/22/19 Pre-Operative Diagnosis: embeded iud Operation: removal of iud, D&C Findings: cx clean, no string seen , uterus ns, adenexa no masses Post-Operative Diagnosis: Same as Pre-op Surgeon: Can Whelan Anesthesia: General Specimens Removed: iud, EMC Estimated Blood Loss (mls): 25 Drains & Tubes with Location: none Blood Volume Replaced (mls): 0 Operative Report Dictated: Yes
--- NOTE | 2019-08-22 21:52 | OP ---
DATE OF OPERATION: 08/22/2019 PREOPERATIVE DIAGNOSIS: Imbedded intrauterine device, lost intrauterine device string. POSTOPERATIVE DIAGNOSIS: Imbedded intrauterine device, lost intrauterine device string. PROCEDURE: Examination under anesthesia, dilation and curettage, and removal of the intrauterine device. SURGEON: Can Whelan MD ANESTHESIA: General. ESTIMATED BLOOD LOSS: 25 mL. OPERATION: The patient was taken to the operating room and had adequate general anesthesia, placed in the dorsal lithotomy position. Abdomen and vagina were prepped and draped. Then examination under anesthesia revealed external genitalia to be normal. Cervix was closed. No gross lesions. IUD string was not seen. Uterus was normal size. Adnexa: No masses were palpable. With a weighted speculum in the vagina, anterior lip of the cervix was grasped with a single-toothed tenaculum. The cervix was gradually dilated. With the IUD hook inserted into the fundal area of the uterus, an IUD was removed. The endometrium was gently curetted with a smooth curette. Patient tolerated the procedure and left the OR in good condition. IUD was examined and it was complete. Patient left the OR in good condition. CAN WHELAN M.D. [id number]
--- NOTE | 2019-08-26 16:09 | PATH ---
Surgical Pathology Report Patient Name: DAPHNEY CH [facility]. Rec. #: [id number] /Age/Gender: 1990 (Age: 29) / F Account: [id number] Location: [facility] SURGICAL Taken: 08/22/2019 Received: 08/23/2019 Reported: 08/26/2019 Physicians: Can Whelan M.D. Specimen(s) Received A: IUD B: ENDOMETRIAL CURETTINGS Clinical History Retained IUD Final Diagnosis A. IUD, REMOVAL: CONSISTENT INTRAUTERINE DEVICE. B. ENDOMETRIAL CURETTINGS: FRAGMENTS OF ENDOMETRIAL TISSUE SHOWING DECIDUALIZED STROMA AND INACTIVE GLANDS. SEE COMMENT. SEPARATE ENDOCERVICAL TISSUE WITH NO SIGNIFICANT PATHOLOGIC CHANGE. Comment: Findings are consistent with exogenous hormone effect. Suggest clinical correlation. Electronically Signed Sushant Campos M.D. Gross Description A. Received fresh labeled "IUD," is a 3 cm in length white, T-shaped device with attached string, consistent with an IUD. No soft tissue is present. No sections are submitted, gross only. B. Received in formalin labeled "endometrial curettings," is a 2.3 x 2.0 x 0.3 cm aggregate of bello-brown soft tissue fragments admixed with blood clot. The formalin is filtered and the specimen is entirely submitted in one cassette. 08/23/2019 [facility]08/23/2019
== END | disposition home or self-care (01) ==
LOC: JASU-SURG 11:36
PROVIDERS: ATTEND Obstetrics & Gynecology
PROC: 0UPD7HZ Removal of Contraceptive Device from Uterus and Cervix, Via Natural or Artificial Opening (ICD-10-PCS; principal; 2019-08-22 14:00)
PROC: 0UDB7ZZ Extraction of Endometrium, Via Natural or Artificial Opening (ICD-10-PCS; 2019-08-22 14:00)
DX: T83.32XA Displacement of intrauterine contraceptive device, initial encounter (principal)
CPT/HCPCS: 36415; 80053; 84702; 85025; 85610; 88300-TC; 88305-TC; 93005; 93010; 94760

== ENCOUNTER 2023-07-15 10:52 | Emergency (ER) | payer OTHER ==
[2023-07-15 10:58] VITALS: TEMP 97.4; BMI 36.0
[2023-07-15] MEDS ORDERED: ACETAMINOPHEN 1000 MG/100 ML BAG IVPB ONE (12:17)
[2023-07-15] MEDS ORDERED: ACETAMINOPHEN INJECTION 100 ML IVPB ONE (13:44)
[2023-07-15 14:10] LABS: EOS % 2.8 % (0-4.5); HEMATOCRIT 38.4 % (32.4-45.2); HEMOGLOBIN 12.6 GM/dL (10.7-15.3); LYMPH % 50.3 % (8-40); MCH 26.7 pg (25.7-33.7); MCHC 32.7 g/dl (32.0-36.0); MEAN CELL VOLUME 81.7 fl (80-96); MEAN PLT VOLUME 8.1 fl (7.5-11.1); MONO % 7.3 % (3.8-10.2); NEUT % 38.6 % (42.8-82.8); PLATELET COUNT 341 10^3/uL (134-434); RBC 4.71 M/mm3 (3.60-5.2); WHITE BLOOD COUNT 5.1 K/mm3 (4.0-10.0)
[2023-07-15 14:11] LABS: PH,URINE 7.5 (5.0-8.0); URINE APPEARANCE CLEAR; URINE BILIRUBIN NEGATIVE (NEGATIVE); URINE COLOR YELLOW; URINE GLUCOSE (UA) NEGATIVE (NEGATIVE); URINE KETONE NEGATIVE (NEGATIVE); URINE LEUK ESTERASE NEGATIVE (NEGATIVE); URINE NITRITE NEGATIVE (NEGATIVE); URINE PROTEIN NEGATIVE (NEGATIVE); URINE UROBILINOGEN 0.2 mg/dL (0.2-1.0)
[2023-07-15 14:17] LABS: INR 1.14 (0.83-1.09); PROTHROMBIN TIME (PATIENT) 13.2 SEC (9.7-13.0)
[2023-07-15] MEDS ORDERED: PROCHLORPERAZINE INJECTION 10 MG/2 ML VIAL IVPB ONE (14:17)
[2023-07-15] MEDS ORDERED: SODIUM CHLORIDE 0.9% 500 ML INFUS.BAG IV ONE (14:17)
[2023-07-15 14:20] LABS: ACTIVATED PTT 32.2 SECONDS (25.2-36.5)
[2023-07-15 14:27] LABS: POTASSIUM 4.2 mmol/L (3.5-5.1)
[2023-07-15 14:29] LABS: BLOOD UREA NITROGEN 11.5 mg/dL (7-18); CALCIUM 9.2 mg/dL (8.5-10.1)
[2023-07-15 14:32] LABS: CREATININE 0.7 mg/dL (0.55-1.3)
[2023-07-15 14:34] LABS: BILIRUBIN,TOTAL 0.3 mg/dL (0.2-1); TOT PROT 7.9 g/dl (6.4-8.2)
[2023-07-15 14:51] VITALS: BP 135/88; PULSE 59; RESP 19
[2023-07-15] MEDS ORDERED: PROCHLORPERAZINE INJECTION 10 MG/2 ML VIAL ONE (15:01)
== END 2023-07-15 16:36 | disposition left against medical advice (07) ==
LOC: JER 10:52
PROC: 3E033NZ Introduction of Analgesics, Hypnotics, Sedatives into Peripheral Vein, Percutaneous Approach (ICD-10-PCS; principal; 2023-07-15)
PROC: 3E033GC Introduction of Other Therapeutic Substance into Peripheral Vein, Percutaneous Approach (ICD-10-PCS; 2023-07-15)
PROC: 3E033GC Introduction of Other Therapeutic Substance into Peripheral Vein, Percutaneous Approach (ICD-10-PCS; 2023-07-15)
DX: R10.31 Right lower quadrant pain (principal); R11.0 Nausea; R51.9 Headache, unspecified; R42 Dizziness and giddiness; E28.2 Polycystic ovarian syndrome
CPT/HCPCS: 36415; 76830-TC; 80053; 81003; 84703; 85025; 85610; 85730; 87086; 87491; 87591; 87661; 96374; 96375; 99284-25

== ENCOUNTER 2023-12-31 21:23 | Emergency (ER) | payer OTHER ==
[2023-12-31 21:33] VITALS: BP 116/80; PULSE 86; RESP 20; TEMP 98.4; BMI 39.9
== END 2024-01-01 00:24 | disposition home or self-care (01) ==
LOC: JER 21:23
DX: R60.0 Localized edema (principal); M79.605 Pain in left leg
CPT/HCPCS: 93970-TC; 99284-25